=== PATIENT | female | born 1945 | race Caucasian/White ===

== ENCOUNTER 2022-06-23 14:36 | Outpatient (CLI) | payer OTHER, SELFPAY ==
[2022-06-23 19:40] LABS: Vitamin B12* 470 pg/mL (243-894)
== END 2022-06-23 14:37 | disposition home or self-care (01) ==
PROVIDERS: PCP Family Medicine; Visit Provider Family Medicine
DX: R06.09 Other forms of dyspnea (principal); R53.1 Weakness; I10 Essential (primary) hypertension; E78.5 Hyperlipidemia, unspecified; F41.9 Anxiety disorder, unspecified
CPT/HCPCS: 82607; 84443

== ENCOUNTER 2022-07-02 10:35 | Observation (INO) | payer OTHER, SELFPAY ==
[2022-07-02] VITALS (18 sets, daily range): BP systolic 119–171; BP diastolic 51–108; PULSE 68–87; RESP 16–26; TEMP 36.4–36.8; O2SAT 93–99; BMI 44.7; BMI 43.9
--- NOTE | 2022-07-02 12:26 | CRLHL7_ITS ---
For Patients: As a result of the Century Cures Act, medical imaging exams and procedure reports are released immediately into your electronic medical record. You may view this report before your referring provider. If you have questions, please contact your health care provider. INDICATION: Dyspnea COMPARISON: Portions of an examination from February 13, 2022 TECHNIQUE: : CT examination of the chest was performed with the uneventful intravenous administration of 95 cc of Isovue 370 while thin axial sections were obtained from above the apices of the lungs to the lung bases. Please note that all CT scans at this facility use dose modulation, iterative reconstruction, and/or weight-based dosing when appropriate to reduce radiation dose to as low as reasonably achievable. FINDINGS: : HEART and MEDIASTINUM: The heart size is normal. There is no mediastinal or hilar adenopathy or mass. There is no pericardial effusion.Atherosclerotic vascular calcifications. Valvular calcifications. A few scattered prominent mediastinal lymph nodes are probably reactive. PULMONARY ARTERIAL CIRCULATION: There is no visible intraluminal filling defect to suggest pulmonary embolus. LUNGS: Prominent septal lines and thickening the interlobular septa consistent with interstitial edema, mild. Basilar atelectasis. PLEURAL SPACES: Small effusions, right greater than VISUALIZED UPPER ABDOMEN: Hepatic steatosis. Granulomatous calcifications of the spleen. Otherwise, the limited visualized upper abdominal structures appear normal. OSSEOUS STRUCTURES: Age-appropriate appearance. No acute fracture or destructive process. TUBES and LINES: None. IMPRESSION: Mild interstitial edema pattern with bilateral effusions. This likely represents mild congestive heart failure. No finding of pulmonary embolus. Please note that all CT scans at this facility use dose modulation, iterative reconstruction, and/or weight-based dosing when appropriate to reduce radiation dose to as low as reasonably achievable. Dictated by Luis Armando Lehman MD @ 07/02/2022 2:43:14 PM (Electronically Signed)
--- NOTE | 2022-07-02 12:29 | ED.GENADULT ---
HPI - General Adult General Time Seen by Provider: 12:30 Date Seen: 07/02/22 Chief complaint: Shortness of Breath/Dyspnea Stated complaint: Struggling to breathe Time Seen by Provider: 07/02/22 12:14 Source: patient Mode of arrival: ambulatory Limitations: no limitations and physical limitation (Shortness of breath) History of Present Illness HPI narrative: Patient is 76 year white female with a history of diabetes on insulin history arteriosclerotic cardiovascular disease by her chart history presents with shortness of breath over the last few weeks started slowly but it has increased, definitely worse with physical exertion. Seems to get better with rest but she still has some shortness of breath at rest. She only gets occasional tightness in her chest with heavy exertion. She has had no fever chills COVID symptoms, no leg swelling or edema she reports her weight is been up a little bit over the last few weeks but not markedly. She has not had a history of heart failure by her history. She is on Lasix 40 mg daily by her chart. No COVID exposure as mention Related Data Home Medications Medication Instructions Recorded Confirmed atorvastatin 80 mg tablet 80 mg PO QPM 04/08/22 07/02/22 insulin glargine 100 unit/mL (3 14 unit subcut QPM 04/08/22 06/23/22 mL) subcutaneous pen (Lantus Solostar U-100 Insulin) metformin 1,000 mg tablet 1,000 mg PO BIDWMEAL 04/08/22 07/02/22 metoprolol tartrate 25 mg tablet 12.5 mg PO BID 04/08/22 07/02/22 pen needle, diabetic 31 gauge x 04/08/22 06/23/22 5/16 (Unifine Pentips) pioglitazone 15 mg tablet 15 mg PO QDAY 04/08/22 07/02/22 sertraline 100 mg tablet 100 mg PO QDAY 04/08/22 07/02/22 Previous Rx's Medication Instructions Recorded omeprazole 40 mg capsule,delayed 40 mg PO QDAY #90 caps 05/19/22 release furosemide 20 mg tablet 40 mg PO QDAY #180 tabs 06/23/22 hydrocodone 5 mg-acetaminophen 325 1 tab PO Q8H PRN pain #90 tabs 06/23/22 mg tablet glimepiride 4 mg tablet 8 mg PO QDAY #180 tabs 06/25/22 Allergies Allergy/AdvReac Type Severity Reaction Status Date / Time No Known Drug Allergies Allergy Verified 07/02/22 13:36 Review of Systems Status of ROS: Reports: 10 or more systems reviewed and unremarkable except as noted in History and below [facility] Medical History (Updated 07/02/22 @ 19:47 by Ahsan Huynh MD) Anxiety ASCVD (arteriosclerotic cardiovascular disease) CAD (coronary artery disease) Chronic back pain 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, managed as type 2 DM (diabetes mellitus), type 2 Dysthymia GERD (gastroesophageal reflux disease) Hyperlipidemia Hypertension Lumbar spinal stenosis Valvular cardiomyopathy Surgical History S/P coronary artery stent placement Status post hysterectomy with oophorectomy Status post lumbar spinal fusion Status post total replacement of right hip Social History Highest level of school completed/degree received: high school graduate Smoking Status: Never smoker Do you use any of these nicotine containing products: None Second hand tobacco smoke exposure: No How often do you have a drink containing alcohol: never AUDIT-C Alcohol total score: 0 Non-prescribed substance use: denies use Caffeine: Yes (coffee x2-3 daily) service: No Exam Narrative: Exam Narrative: Objective: Patient is a 76 year white female obese patient with was very pleasant, non hypoxic, vital signs show blood pressure 161/79 O2 sat is 90% on room air Neck is supple Chest is clear Heart rate and rhythm regular 2/6 systolic murmur Abdomen obese benign nontender Extremities show trace edema of the ankles and pretibial area, neurologic is nonfocal Skin periphery is warm and dry good peripheral perfusion Const: Vital Signs, click to edit/add: Vital Signs - 24 hr 07/02/22 12:00 07/02/22 12:38 07/02/22 13:30 Temperature 98.0 F Pulse Rate [Right Pulse Oximeter] 79 75 74 Respiratory Rate 26 H 24 24 Blood Pressure [Le ft Forearm] 161/79 H 155/65 H 119/108 H Pulse Oximetry 98 97 98 Oxygen Delivery Me thod Room Air Room Air Room Air 07/02/22 13:00 07/02/22 14:00 07/02/22 15:05 Temperature Pulse Rate [Right Pulse Oximeter] 68 80 87 Respiratory Rate 24 20 Blood Pressure [Le ft Forearm] 163/72 H 159/62 H 145/57 H Pulse Oximetry 96 95 96 Oxygen Delivery Me thod Room Air Room Air Room Air 07/02/22 15:30 07/02/22 16:00 07/02/22 16:30 Temperature Pulse Rate [Right Pulse Oximeter] 78 77 77 Respiratory Rate Blood Pressure [Le ft Forearm] 142/51 H 171/79 H Pulse Oximetry 96 97 98 Oxygen Delivery Me thod Room Air Room Air Room Air Course Vital Signs Vital signs: Initial Vital Signs Temperature 98.0 F 07/02/22 12:00 Temperature Source Temporal Artery Scan 07/02/22 12:00 Pulse Rate 79 07/02/22 12:00 Respiratory Rate 26 H 07/02/22 12:00 Blood Pressure 161/79 H 07/02/22 12:00 Blood Pressure Mean 106 07/02/22 12:00 Blood Pressure Position Sitting 07/02/22 12:00 Pulse Oximetry 98 07/02/22 12:00 Oxygen Delivery Method 07/02/22 12:00 Vital Signs Temperature 98.0 F 07/02/22 12:00 Pulse Rate 79 07/02/22 12:00 Respiratory Rate 26 H 07/02/22 12:00 Blood Pressure 161/79 H 07/02/22 12:00 Pulse Oximetry 98 07/02/22 12:00 Oxygen Delivery Method 07/02/22 12:00 Temperature 97.9 F 07/02/22 18:00 Pulse Rate 77 07/02/22 16:30 Respiratory Rate 22 07/02/22 18:47 Blood Pressure 171/79 H 07/02/22 16:30 Pulse Oximetry 99 07/02/22 18:47 Oxygen Delivery Method 07/02/22 18:47 Medical Decision Making MDM Narrative Medical decision making narrative: Patient is a 76 year white female with arteriosclerotic cardiovascular disease, elevated BMI with shortness of breath over a few weeks duration. She also describes occasional chest tightness with heavy exertion but not at rest. At this point I think we do will do a troponin, cardiac monitoring to rule out acute coronary syndrome, chest CT to rule out PE, check electrolytes CBC to make sure she did have anemia. Will check a COVID test. Will give the patient IV Lasix., will check a proBNP. We will give aspirin as well. Addendum: Patient's 2nd troponin is just about what it was just a little bit over abnormal level at 0.12, certainly this could be from cardiac strain as well from her foot heart failure. She also of certainly has some ischemic disease, her hemoglobins been 7.78 recently. No source of bleeding she has not noticed any GI bleeding. Will transfuse here unit. I have discussed with Dr. Delgadillo who kindly will follow in hospital for the hospitalist service. Optimally 0 transfer this patient for cardiac assessment and care, but there is no available beds in the state area, therefore we will admit the patient to the hospital here and make due as above. Addendum: Patient got a little sweaty, nurses checked her blood sugar and it was in the 50 range she will be getting a half amp of D50 and then will run a TKO D5 court half-normal Lab Data Labs: Lab Results 07/02/22 07/02/22 07/02/22 Range/Units 12:27 12:30 12:30 WBC 10.89 (4.50-11.00) K/uL RBC 2.88 L (4.00-5.20) m/uL Hgb 8.0 L (12.0-16.0) gm/dL Hct 26.3 L (33.0-51.0) % MCV 91 (80-100) fL MCH 28 (26-34) pg MCHC 30 L (32-36) gm/dL RDW Coeff of Clarita 16.5 H (11.5-15.5) % Plt Count 194 (140-440) K/uL Neut % (Auto) 64.8 (42.0-72.0) % Lymph % (Auto) 17.8 L (20-44) % [place] % (Auto) 15.2 H (0.0-11.0) % Eos % (Auto) 0.2 (0.0-7.0) % Baso % (Auto) 0.3 (0.0-3.0) % Neut # (Auto) 7.07 H (1.7-7.0) K/uL Lymph # (Auto) 1.90 (0.90-2.90) K/uL [place] # (Auto) 1.70 H (0.00-0.90) K/UL Eos # (Auto) 0.02 (0.00-0.50) K/uL Baso # (Auto) 0.03 (0.00-0.30) K/uL Abs Immat Gran (auto) 0.18 (0.00-0.30) K/uL Absolute Retic (0.03-0.08) # Percent Retic (0.5-2.0) % Immature Retic Fraction (3.0-15.9) % Retic Hgb Equivalent (29.0-35.0) pg INR (0.91-1.10) Sodium 140 (135-149) mmol/L Potassium 4.2 (3.6-5.1) mmol/L Chloride 106 (96-114) mmol/L Carbon Dioxide 25 (20-32) mmol/L BUN 28 (7-30) mg/dL Creatinine 1.2 (0.5-1.5) mg/dL Estimated Creat Clear 28.20 Estimated GFR 47 ml/min Glucose 188 H (60-115) mg/dL Calcium 9.9 (8.4-10.6) mg/dL Iron (37-170) ug/dL TIBC (265-497) ug/dL % Saturation (20-50) % Ferritin (11.1-264.0) ng/mL Total Bilirubin (0.1-1.5) mg/dL Direct Bilirubin (0.0-0.5) mg/dL AST (12-35) U/L ALT (4-35) U/L Alkaline Phosphatase (40-150) U/L Troponin I (0.01-0.04) ng/mL C-Reactive Protein < 0.5 L (0.5-1.0) mg/dL NT-Pro-B Natriuret Pep (0-450) PG/mL Total Protein (6.0-8.3) g/dL Albumin (3.3-5.0) g/dL SARS-CoV-2 (PCR) Negative SARS-CoV-2 (Negative) Blood Type Antibody Screen Crossmatch (AHG) 07/02/22 07/02/22 07/02/22 Range/Units 12:30 12:30 12:30 WBC (4.50-11.00) K/uL RBC (4.00-5.20) m/uL Hgb (12.0-16.0) gm/dL Hct (33.0-51.0) % MCV (80-100) fL MCH (26-34) pg MCHC (32-36) gm/dL RDW Coeff of Clarita (11.5-15.5) % Plt Count (140-440) K/uL Neut % (Auto) (42.0-72.0) % Lymph % (Auto) (20-44) % [place] % (Auto) (0.0-11.0) % Eos % (Auto) (0.0-7.0) % Baso % (Auto) (0.0-3.0) % Neut # (Auto) (1.7-7.0) K/uL Lymph # (Auto) (0.90-2.90) K/uL [place] # (Auto) (0.00-0.90) K/UL Eos # (Auto) (0.00-0.50) K/uL Baso # (Auto) (0.00-0.30) K/uL Abs Immat Gran (auto) (0.00-0.30) K/uL Absolute Retic (0.03-0.08) # Percent Retic (0.5-2.0) % Immature Retic Fraction (3.0-15.9) % Retic Hgb Equivalent (29.0-35.0) pg INR 0.97 (0.91-1.10) Sodium (135-149) mmol/L Potassium (3.6-5.1) mmol/L Chloride (96-114) mmol/L Carbon Dioxide (20-32) mmol/L BUN (7-30) mg/dL Creatinine (0.5-1.5) mg/dL Estimated Creat Clear Estimated GFR ml/min Glucose (60-115) mg/dL Calcium (8.4-10.6) mg/dL Iron (37-170) ug/dL TIBC (265-497) ug/dL % Saturation (20-50) % Ferritin 95.5 (11.1-264.0) ng/mL Total Bilirubin 0.7 (0.1-1.5) mg/dL Direct Bilirubin 0.1 (0.0-0.5) mg/dL AST 30 (12-35) U/L ALT 22 (4-35) U/L Alkaline Phosphatase 74 (40-150) U/L Troponin I 0.09 H* (0.01-0.04) ng/mL C-Reactive Protein (0.5-1.0) mg/dL NT-Pro-B Natriuret Pep 1700 H (0-450) PG/mL Total Protein 7.4 (6.0-8.3) g/dL Albumin 4.7 (3.3-5.0) g/dL SARS-CoV-2 (PCR) (Negative) Blood Type Antibody Screen Crossmatch (AHG) 07/02/22 07/02/22 07/02/22 Range/Units 12:30 12:30 14:06 WBC (4.50-11.00) K/uL RBC (4.00-5.20) m/uL Hgb (12.0-16.0) gm/dL Hct (33.0-51.0) % MCV (80-100) fL MCH (26-34) pg MCHC (32-36) gm/dL RDW Coeff of Clarita (11.5-15.5) % Plt Count (140-440) K/uL Neut % (Auto) (42.0-72.0) % Lymph % (Auto) (20-44) % [place] % (Auto) (0.0-11.0) % Eos % (Auto) (0.0-7.0) % Baso % (Auto) (0.0-3.0) % Neut # (Auto) (1.7-7.0) K/uL Lymph # (Auto) (0.90-2.90) K/uL [place] # (Auto) (0.00-0.90) K/UL Eos # (Auto) (0.00-0.50) K/uL Baso # (Auto) (0.00-0.30) K/uL Abs Immat Gran (auto) (0.00-0.30) K/uL Absolute Retic 0.15 H (0.03-0.08) # Percent Retic 5.0 H (0.5-2.0) % Immature Retic Fraction 26.6 H (3.0-15.9) % Retic Hgb Equivalent 23.7 L (29.0-35.0) pg INR (0.91-1.10) Sodium (135-149) mmol/L Potassium (3.6-5.1) mmol/L Chloride (96-114) mmol/L Carbon Dioxide (20-32) mmol/L BUN (7-30) mg/dL Creatinine (0.5-1.5) mg/dL Estimated Creat Clear Estimated GFR ml/min Glucose (60-115) mg/dL Calcium (8.4-10.6) mg/dL Iron 54 (37-170) ug/dL TIBC 339 (265-497) ug/dL % Saturation 16 L (20-50) % Ferritin (11.1-264.0) ng/mL Total Bilirubin (0.1-1.5) mg/dL Direct Bilirubin (0.0-0.5) mg/dL AST (12-35) U/L ALT (4-35) U/L Alkaline Phosphatase (40-150) U/L Troponin I 0.12 H* (0.01-0.04) ng/mL C-Reactive Protein (0.5-1.0) mg/dL NT-Pro-B Natriuret Pep (0-450) PG/mL Total Protein (6.0-8.3) g/dL Albumin (3.3-5.0) g/dL SARS-CoV-2 (PCR) (Negative) Blood Type Antibody Screen Crossmatch (AHG) 07/02/22 Range/Units 15:37 WBC (4.50-11.00) K/uL RBC (4.00-5.20) m/uL Hgb (12.0-16.0) gm/dL Hct (33.0-51.0) % MCV (80-100) fL MCH (26-34) pg MCHC (32-36) gm/dL RDW Coeff of Clarita (11.5-15.5) % Plt Count (140-440) K/uL Neut % (Auto) (42.0-72.0) % Lymph % (Auto) (20-44) % [place] % (Auto) (0.0-11.0) % Eos % (Auto) (0.0-7.0) % Baso % (Auto) (0.0-3.0) % Neut # (Auto) (1.7-7.0) K/uL Lymph # (Auto) (0.90-2.90) K/uL [place] # (Auto) (0.00-0.90) K/UL Eos # (Auto) (0.00-0.50) K/uL Baso # (Auto) (0.00-0.30) K/uL Abs Immat Gran (auto) (0.00-0.30) K/uL Absolute Retic (0.03-0.08) # Percent Retic (0.5-2.0) % Immature Retic Fraction (3.0-15.9) % Retic Hgb Equivalent (29.0-35.0) pg INR (0.91-1.10) Sodium (135-149) mmol/L Potassium (3.6-5.1) mmol/L Chloride (96-114) mmol/L Carbon Dioxide (20-32) mmol/L BUN (7-30) mg/dL Creatinine (0.5-1.5) mg/dL Estimated Creat Clear Estimated GFR ml/min Glucose (60-115) mg/dL Calcium (8.4-10.6) mg/dL Iron (37-170) ug/dL TIBC (265-497) ug/dL % Saturation (20-50) % Ferritin (11.1-264.0) ng/mL Total Bilirubin (0.1-1.5) mg/dL Direct Bilirubin (0.0-0.5) mg/dL AST (12-35) U/L ALT (4-35) U/L Alkaline Phosphatase (40-150) U/L Troponin I (0.01-0.04) ng/mL C-Reactive Protein (0.5-1.0) mg/dL NT-Pro-B Natriuret Pep (0-450) PG/mL Total Protein (6.0-8.3) g/dL Albumin (3.3-5.0) g/dL SARS-CoV-2 (PCR) (Negative) Blood Type O Positive Antibody Screen NEGATIVE Crossmatch (AHG) See Detail Discharge Plan Discharge Clinical Impression: Shortness of breath Discharge Location: [facility] Prescriptions: No Action furosemide 20 mg tablet 40 mg PO QDAY Qty: 180 3RF hydrocodone-acetaminophen 5-325 mg tablet 1 tab PO Q8H PRN (Reason: pain) Qty: 90 0RF atorvastatin 80 mg tablet 80 mg PO QPM (DME) pen needle, diabetic [Unifine Pentips] 31 gauge x 5/16 needle See Rx Instructions .Route Rx Instructions: TID insulin glargine [Lantus Solostar U-100 Insulin] 100 unit/mL (3 mL) insulin pen 14 unit subcut QPM metformin 1,000 mg tablet 1,000 mg PO BIDWMEAL metoprolol tartrate 25 mg tablet 12.5 mg PO BID pioglitazone 15 mg tablet 15 mg PO QDAY sertraline 100 mg tablet 100 mg PO QDAY omeprazole 40 mg capsule,delayed release(DR/EC) 40 mg PO QDAY Qty: 90 3RF glimepiride 4 mg tablet 8 mg PO QDAY Qty: 180 3RF Follow Up/Referrals: Smith Marie MD [Primary Care Provider] -
[2022-07-02 12:39] LABS: Basophils Absolute Auto 0.03 K/uL (0.00-0.30); Basophils Percent Auto 0.3 % (0.0-3.0); Eosinophils Absolute Auto 0.02 K/uL (0.00-0.50); Eosinophils Percent Auto 0.2 % (0.0-7.0); Hematocrit 26.3 % (33.0-51.0); Immature Granulocytes Abs Auto 0.18 K/uL (0.00-0.30); Lymphocytes Percent Auto 17.8 % (20-44); Mean Corpuscular HGB Conc 30 gm/dL (32-36); Mean Corpuscular Hemoglobin 28 pg (26-34); Mean Corpuscular Volume 91 fL (80-100); Monocytes Percent Auto 15.2 % (0.0-11.0); Neutrophils Absolute Auto 7.07 K/uL (1.7-7.0); Neutrophils Percent Auto 64.8 % (42.0-72.0); Platelet Count* 194 K/uL (140-440); RDW Coefficient of Variation % 16.5 % (11.5-15.5); Red Blood Count 2.88 m/uL (4.00-5.20); White Blood Count* 10.89 K/uL (4.50-11.00)
[2022-07-02] MEDS: ASPIRIN 81 MG TAB.CHEW 324 MG PO (12:44)
[2022-07-02] MEDS: FUROSEMIDE 10 MG/ML inj 40 MG IV (12:44)
[2022-07-02 12:57] LABS: Slide Review Reflex No
[2022-07-02 13:03] LABS: Chloride* 106 mmol/L (96-114); Potassium* 4.2 mmol/L (3.6-5.1); Sodium* 140 mmol/L (135-149)
[2022-07-02 13:04] LABS: Albumin* 4.7 g/dL (3.3-5.0)
[2022-07-02 13:05] LABS: INR 0.97 (0.91-1.10); Prothrombin Time 13.3 Seconds
[2022-07-02 13:06] LABS: Creatinine* 1.2 mg/dL (0.5-1.5); Estimated Glomerular Filt Rate 47 ml/min
[2022-07-02 13:07] LABS: Bilirubin Direct* 0.1 mg/dL (0.0-0.5); Bilirubin Total* 0.7 mg/dL (0.1-1.5); Blood Urea Nitrogen* 28 mg/dL (7-30); Calcium* 9.9 mg/dL (8.4-10.6); Carbon Dioxide* 25 mmol/L (20-32); Glucose* 188 mg/dL (60-115); Total Protein* 7.4 g/dL (6.0-8.3)
[2022-07-02 13:08] LABS: Alanine Aminotransferase* 22 U/L (4-35); Alkaline Phosphatase* 74 U/L (40-150); Aspartate Amino Transferase* 30 U/L (12-35)
[2022-07-02 13:11] LABS: C Reactive Protein* < 0.5 mg/dL (0.5-1.0)
[2022-07-02 13:16] LABS: NT Pro B Type NatriureticPept* 1700 PG/mL (0-450)
[2022-07-02 13:17] LABS: SARS PCR* Negative SARS-CoV-2 (Negative)
[2022-07-02 13:20] LABS: Troponin I* 0.09 ng/mL (0.01-0.04)
[2022-07-02 15:08] LABS: Troponin I* 0.12 ng/mL (0.01-0.04)
--- NOTE | 2022-07-02 15:11 | ED.NURSE ---
Dr Cabrera updated on elevated trop level
[2022-07-02 15:56] LABS: Immature Reticulocyte Fraction 26.6 % (3.0-15.9); Reticulocyte Hemoglobin Equivi 23.7 pg (29.0-35.0); Reticulocytes Absolute 0.15 # (0.03-0.08)
[2022-07-02] MEDS: DEXTROSE 50 % SYRINGE IVP (16:04)
--- NOTE | 2022-07-02 16:06 | ED.NURSE ---
pt became diaphoretic, states that happens when blood sugar drops. pt given juice and blood sugar checked, blood sugar 54. pt given another juice and 1/2 amp D50.
--- NOTE | 2022-07-02 16:08 | ED.NURSE ---
dr. nguyen in seeing pt
[2022-07-02 16:14] LABS: Iron* 54 ug/dL (37-170)
[2022-07-02 16:23] LABS: Percent Iron Saturation 16 % (20-50); Total Iron Binding Capacity 339 ug/dL (265-497)
--- NOTE | 2022-07-02 16:37 | ED.NURSE ---
report given to Radha. pt will transfer to room 241 via cart on heart monitor.
[2022-07-02 16:51] LABS: Ferritin* 95.5 ng/mL (11.1-264.0)
--- NOTE | 2022-07-02 19:33 | PM.IMHP1 ---
Hospitalist- H&P: HPI History of Present Illness Time Seen by Provider: 16:30 Date Seen: 07/02/22 Chief complaint: Struggling to breathe Narrative: Amberly Norman is a 76 year old woman has had progressively increased dyspnea over the last several weeks, worse over the past few days. Dyspnea is worse with any exertion. Unable to lay flat when she sleeps. Sleeps semi upright in her recliner because of her orthopnea. Has increasing discomfort with exertion as well. Denies any chest heaviness, pressure, tightness, or pain though. Denies syncope or near-syncope. Denies nausea or vomiting. Denies palpitations or fluttering. Denies cough. Denies fevers, rigors, diaphoresis. Intermittent bilateral lower extremity edema. Intermittent left lower extremity erythema with increasing edema. Denies blood loss of any sort. Has been told she has anemia for number of years. Few days ago was started on iron supplementation by her primary care physician. Denies having previously had any studies to discern the cause of her anemia aside from blood test. Denies any blood loss of any sort. Review of Systems Status of ROS: Reports: 10 or more systems reviewed and unremarkable except as noted in History and below Narrative: No recent travel, trauma, injury, or infection. No concerns with bowel or bladder function or elimination. Denies dysuria, urgency, frequency, hematuria. Denies diarrhea or constipation. Denies hematochezia or hematemesis. Denies any melena. Denies epistaxis, vaginal bleeding, or hemoptysis. No focal motor neurologic deficits. Denies cold or heat intolerance. 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, managed as type 2 DM (diabetes mellitus), type 2 Dysthymia GERD (gastroesophageal reflux disease) Hyperlipidemia Hypertension Lumbar spinal stenosis Valvular cardiomyopathy Surgical History S/P coronary artery stent placement Status post hysterectomy with oophorectomy Status post lumbar spinal fusion Status post total replacement of right hip Social History Highest level of school completed/degree received: high school graduate Smoking Status: Never smoker Do you use any of these nicotine containing products: None Second hand tobacco smoke exposure: No How often do you have a drink containing alcohol: never AUDIT-C Alcohol total score: 0 Non-prescribed substance use: denies use Caffeine: Yes (coffee x2-3 daily) service: No Meds Home Medications and Allergies Home Medications Medication Instructions Recorded Confirmed Type atorvastatin 80 mg tablet 80 mg PO QPM 04/08/22 07/02/22 History insulin glargine 100 unit/mL (3 14 unit subcut QPM 04/08/22 06/23/22 History mL) subcutaneous pen (Lantus Solostar U-100 Insulin) metformin 1,000 mg tablet 1,000 mg PO BIDWMEAL 04/08/22 07/02/22 History metoprolol tartrate 25 mg tablet 12.5 mg PO BID 04/08/22 07/02/22 History pen needle, diabetic 31 gauge x 04/08/22 06/23/22 History 5/16 (Unifine Pentips) pioglitazone 15 mg tablet 15 mg PO QDAY 04/08/22 07/02/22 History sertraline 100 mg tablet 100 mg PO QDAY 04/08/22 07/02/22 History Allergies Allergy/AdvReac Type Severity Reaction Status Date / Time No Known Drug Allergies Allergy Verified 07/02/22 13:36 Exam Narrative: Exam Narrative: No acute distress, appears comfortable. Sitting semi recumbent in exam table in the emergency department. Alert, oriented to self, place, time, situation. Articulate, cooperative, friendly. Mood and affect are congruent. Pale in complexion. No jaundice or icterus. No contusions or ecchymosis. Hearing and vision are grossly normal. Midline nasal septum. Dentition in fair repair. Oropharynx benign although she does have a tight oral aperture. Neck is supple. Midline trachea, normal thyroid. No jugular venous distention but does have hepatojugular reflux. No carotid bruits. No lymphadenopathy. Lungs are clear to auscultation without wheezing, rhonchi, or rales. Chest wall excursions are full. Heart tones with regular rhythm, normal S1-S2. Harsh murmur across the entire precordium grade 3-4/6. No gallops or rubs. PMI not laterally displaced. Abdomen is obese with active bowel sounds, soft, nontender. Does have trace edema pretibially bilaterally. Independent transfer, station, and gait. No focal motor neurologic deficit. No tremor, asterixis, or ataxia. Const: Vital Signs, click to edit/add: Vital Signs - 24 hr 07/02/22 12:00 07/02/22 12:38 07/02/22 13:30 Temperature 98.0 F Pulse Rate [Right Pulse Oximeter] 79 75 74 Respiratory Rate 26 H 24 24 Blood Pressure [Le ft Forearm] 161/79 H 155/65 H 119/108 H Pulse Oximetry 98 97 98 Oxygen Delivery Me thod Room Air Room Air Room Air 07/02/22 13:00 07/02/22 14:00 07/02/22 15:05 Temperature Pulse Rate [Right Pulse Oximeter] 68 80 87 Respiratory Rate 24 20 Blood Pressure [Le ft Forearm] 163/72 H 159/62 H 145/57 H Pulse Oximetry 96 95 96 Oxygen Delivery Me thod Room Air Room Air Room Air 07/02/22 15:30 07/02/22 16:00 07/02/22 16:30 Temperature Pulse Rate [Right Pulse Oximeter] 78 77 77 Respiratory Rate Blood Pressure [Le ft Forearm] 142/51 H 171/79 H Pulse Oximetry 96 97 98 Oxygen Delivery Me thod Room Air Room Air Room Air 07/02/22 18:00 07/02/22 18:47 Temperature 97.9 F Pulse Rate [Right Pulse Oximeter] Respiratory Rate 22 22 Blood Pressure [Le ft Forearm] Pulse Oximetry 99 99 Oxygen Delivery Me thod Room Air Room Air Documenting provider has reviewed patient's vital signs: yes Hospitalist - H&P: Result Labs Labs: Short CBC 07/02/22 Range/Units 12:30 WBC 10.89 (4.50-11.00) K/uL Hgb 8.0 L (12.0-16.0) gm/dL Hct 26.3 L (33.0-51.0) % Plt Count 194 (140-440) K/uL BMP 07/02/22 12:30 Sodium 140 Potassium 4.2 Chloride 106 Carbon Dioxide 25 BUN 28 Creatinine 1.2 Glucose 188 H Calcium 9.9 Cardiac Enzymes 07/02/22 07/02/22 Range/Units 12:30 14:06 Troponin I 0.09 H* 0.12 H* (0.01-0.04) ng/mL Liver Function 07/02/22 Range/Units 12:30 Total Bilirubin 0.7 (0.1-1.5) mg/dL Direct Bilirubin 0.1 (0.0-0.5) mg/dL AST 30 (12-35) U/L ALT 22 (4-35) U/L Alkaline Phosphatase 74 (40-150) U/L Albumin 4.7 (3.3-5.0) g/dL ECG Attestation: I personally reviewed and interpreted this ECG as follows: ECG interpretation date: 07/02/22 ECG interpretation time: 16:30 Prior ECG tracings: not available for review Interpretation: A normal sinus rhythm. Imaging CT scan - chest: Attestation: I have reviewed the pertinent imaging results. Radiologist's impression: Mild interstitial edema pattern with bilateral effusions. This likely represents mild congestive heart failure. No finding of pulmonary embolus. Assessment and Plan Assessment and plan (1) Acute on chronic diastolic CHF (congestive heart failure), NYHA class 3: Status: Acute (2) Valvular cardiomyopathy: Problem comment: Aortic stenosis Status: Acute (3) Aortic stenosis: Problem comment: Coronary angiogram/hemodynamic study 07/26/2021: LMCA, mild luminal irregularities; LAD, mild luminal irregularities; circumflex, patent stent free of significant disease; RCA is dominant, patent stent, mild luminal irregularities. Moderate aortic stenosis, mean gradient 26 mmHg, SHE 1.08 cm2. Status: Acute (4) CAD (coronary artery disease): Problem comment: 02/22/2019 NM stress test: small area of mild to moderate ischemia in the mid and apical anterior wall. Coronary angiogram 07/26/2021: LMCA, mild luminal irregularities; LAD, mild luminal irregularities; circumflex, patent stent free of significant disease; RCA is dominant, patent stent, mild luminal irregularities. Moderate aortic stenosis, mean gradient 26 mmHg, SHE 1.08 cm2. Status: Acute (5) Interstitial edema: Problem comment: Mild, with small bilat pleural effusions consistent with heart failure. Status: Acute (6) Elevated troponin level: Problem comment: Consistent with myocardial strain pattern associated with heart failure. Status: Acute (7) Sleeps in sitting position due to orthopnea: Status: Acute (8) Dyspnea on exertion: Status: Acute (9) DM (diabetes mellitus), type 2: Problem comment: Insulin requiring, plus glipizide, metformin, and pioglitazone Status: Acute (10) Hypoglycemia associated with type 2 diabetes mellitus: Status: Acute (11) Chronic anemia: Problem comment: Iron studies suggest iron deficiency. No additional studies performed as of 07/02/2022. Status: Acute Plan 1. Reviewed impression with patient and her . 2. Recommended admission to the hospital, which they are agreeable to. 3. Increase diuresis efforts with IV furosemide. Monitor her response with physiologic parameters as well as biochemical parameters. 4. Telemetry. 5. Repeat echocardiogram. I am concerned that her cardiomyopathy may be worsening as well as her aortic stenosis. 6. Monitor troponin I levels. 7. Daily weights, I&Os. 8. Stop the pioglitazone which can exacerbate heart failure. Continue with long-acting insulin. And aspart sliding scale insulin. Hold glipizide and metformin for now. 9. Would certainly benefit from repeat myocardial stress test in the outpatient setting. 10. Dietitian to review diet with her given her multiple comorbidities. 11. Transfuse with 1 unit of packed red blood cells for now. 12. Would certainly benefit from a more comprehensive assessment about why she has this anemia. If after doing the workup the conclusion is still that she has iron deficiency anemia alone without any other primary disease process, then to consideration will need to be given to the possibility of IV iron transfusion. 13. Will certainly benefit from follow-up in the outpatient setting with her primary care physician and possibly Cardiology and Hematology.
[2022-07-02] MEDS: FUROSEMIDE 10 MG/ML inj 40 MG IVP (20:29)
[2022-07-02 20:33] LABS: Troponin I* 0.08 ng/mL (0.01-0.04)
--- NOTE | 2022-07-02 20:36 | PC.NURSE ---
2034 Critical lab received, Troponin 0.08, charge and MD updated
[2022-07-02] MEDS: SENNOSIDES/DOCUSATE TABLET 1 TAB PO (21:43)
[2022-07-02] MEDS: HYDROCODONE-ACETAMIN 5-325 MG 1 TAB PO (21:44)
[2022-07-02] MEDS: METOPROLOL TARTRATE 25 MG TABLET 12.5 MG PO (21:44)
[2022-07-03] VITALS (8 sets, daily range): BP systolic 125–181; BP diastolic 55–90; PULSE 65–85; RESP 18–20; TEMP 36.5–36.8; O2SAT 94–97
[2022-07-03] MEDS: HYDROCODONE-ACETAMIN 5-325 MG 1 TAB PO (05:29)
--- NOTE | 2022-07-03 06:00 | PC.NURSE ---
Shift Note: Pt pleasant and cooperative, BP has been elevated this shift, evening dose of metoprolol given @ HS with minimal effect. 1 unit of PRBC transfused without incident for low Hb, awaiting AM recheck results, no adverse reaction noted. Tele shows NSR, no ectopy. PIV in LAC is SL and asymptomatic. LS have fine crackles in RLL, clear in all other lobes. Pt takes Lasix at baseline, one IV dose administered prior to transfusion with Pt noted improved breathing. Pt is up with minimal SBA with her own cane in room to BR. Pt does get winded with activity. See eMAR for medication administration.
[2022-07-03] MEDS: OMEPRAZOLE 20 MG CAPSULE DR 40 MG PO (06:44)
[2022-07-03] MEDS: SERTRALINE 100 MG TABLET PO (06:44)
[2022-07-03 06:52] LABS: HCO3 VBG 27 mmol/L (21-28); Lactate* 0.8 mmol/L (0.5-1.9); PCO2 VBG 39 mmHG (40-50); PO2 VBG 71.7 mmHG (25-47); pH VBG 7.446 (7.32-7.43)
[2022-07-03 07:08] LABS: Hematocrit 29.1 % (33.0-51.0); Hemoglobin* 9.1 gm/dL (12.0-16.0); Mean Corpuscular HGB Conc 31 gm/dL (32-36); Mean Corpuscular Hemoglobin 28 pg (26-34); Mean Corpuscular Volume 89 fL (80-100); Platelet Count* 176 K/uL (140-440); Red Blood Count 3.28 m/uL (4.00-5.20); White Blood Count* 8.84 K/uL (4.50-11.00)
[2022-07-03 07:13] LABS: Slide Review Reflex No
[2022-07-03 07:23] LABS: Chloride* 102 mmol/L (96-114); Sodium* 140 mmol/L (135-149)
[2022-07-03 07:24] LABS: Potassium* 3.9 mmol/L (3.6-5.1)
[2022-07-03 07:26] LABS: Creatinine* 1.3 mg/dL (0.5-1.5); Est. Creatinine Clearance* 26.03; Estimated Glomerular Filt Rate 42 ml/min
[2022-07-03 07:27] LABS: Blood Urea Nitrogen* 31 mg/dL (7-30); Carbon Dioxide* 25 mmol/L (20-32); Glucose* 165 mg/dL (60-115); Phosphorus* 5.2 mg/dL (2.5-4.5)
[2022-07-03 07:28] LABS: Calcium* 9.8 mg/dL (8.4-10.6); Magnesium* 1.7 mg/dL (1.5-2.6)
[2022-07-03 07:30] LABS: C Reactive Protein* 0.6 mg/dL (0.5-1.0)
[2022-07-03 07:39] LABS: Troponin I* 0.04 ng/mL (0.01-0.04)
[2022-07-03] MEDS: FUROSEMIDE 10 MG/ML inj 40 MG IVP (08:06)
[2022-07-03] MEDS: AMLODIPINE 5 MG TABLET PO (08:06)
[2022-07-03] MEDS: METOPROLOL TARTRATE 25 MG TABLET 12.5 MG PO ×2 (08:07→20:56)
[2022-07-03 08:17] LABS: Vitamin B12* 494 pg/mL (243-894)
--- NOTE | 2022-07-03 10:36 | NUTR.NU ---
JORGITO with MD consult related to CHF and DMT2. JULIO CESARN visited with patient whom agreed to diet education without designated caregiver present - she reports he is unable to be at the hospital and she will provide him this information when she is home. Nutrition education provided on a low sodium diet related to congestive heart failure. Verbal and written information provided. Recommend limiting sodium to 2,000 mg per day. Discussed foods recommended and to avoid. Handouts provided from [facility] on heart failure nutrition therapy, sodium content of foods, heart healthy label reading tips, sodium-free flavoring tips and heart healthy cooking and shopping tips. Patient verbalized understanding. JULIO CESARN also discussed with patient diet education related to DMT2. She reported she has received some diet education in the past, however she did not get full education. JULIO CESARN discussed with patient carbohydrate counting, portion sizes, balancing meals/snacks and label reading.?Provided my plate handout. JULIO CESARN encouraged patient to visit a Dietitian as an outpatient when she is ready. RDN's contact information was provided and patient was encouraged to call with questions.
--- NOTE | 2022-07-03 13:42 | PM.IMPN1 ---
Progress Note: A&P Assessment and plan (1) Acute on chronic diastolic CHF (congestive heart failure), NYHA class 3: Problem details: Awaiting echo. Will likely transition her to true 0 semi from her Lasix. Transfused. Unclear the source of her anemia. Status: Acute (2) Valvular cardiomyopathy: Problem details: Aortic stenosis - awaiting echo Status: Acute (3) Aortic stenosis: Problem details: Coronary angiogram/hemodynamic study 07/26/2021: LMCA, mild luminal irregularities; LAD, mild luminal irregularities; circumflex, patent stent free of significant disease; RCA is dominant, patent stent, mild luminal irregularities. Moderate aortic stenosis, mean gradient 26 mmHg, SHE 1.08 cm2. Status: Acute (4) CAD (coronary artery disease): Problem details: 02/22/2019 NM stress test: small area of mild to moderate ischemia in the mid and apical anterior wall. Coronary angiogram 07/26/2021: LMCA, mild luminal irregularities; LAD, mild luminal irregularities; circumflex, patent stent free of significant disease; RCA is dominant, patent stent, mild luminal irregularities. Moderate aortic stenosis, mean gradient 26 mmHg, SHE 1.08 cm2. Status: Acute (5) Interstitial edema: Problem details: Mild, with small bilat pleural effusions consistent with heart failure. - improved clinically Status: Acute (6) Elevated troponin level: Problem details: Consistent with myocardial strain pattern associated with heart failure. - troponin downtrending Status: Acute (7) DM (diabetes mellitus), type 2: Problem details: Insulin requiring, plus glipizide, metformin, and pioglitazone Will hold pioglitazone from here forward Status: Acute (8) Chronic anemia: Problem details: Iron studies suggest iron deficiency. No additional studies performed as of 07/02/2022. Status: Acute Subjective Date Seen: 07/03/22 Interval history: Daily Progress Note - Hospital Medicine Day #: 2 CC: dyspnea; acute heart failure OVERNIGHT UPDATES FROM STAFF & MED, LAB, IMAGING UPDATES Patient has felt a lot better since her IV dosed diuretics. She rested well overnight. She received her blood and this may also have helped her feel better. Notes that the swelling in her bilateral ankles, left has been more problematic, is mildly improved. She does note getting up to the restroom after getting another dose of IV Lasix this morning does not wear her out as it would have done if she was at home. Hemoglobin is 9.1 up from a low of 7.7 Iron level seem to be appropriate. Reticulocyte counts are elevated. INR normal VBG is normal BUN is a little elevated at 31 and creatinine is 1.3. Troponin is down trending 0.04 this morning from 0.08. TSH is normal. Vitamin B12 normal. Folate level pending. CT of chest last night reviewed. Mild interstitial edema pattern with bilateral effusions. This likely represents mild congestive heart failure. No finding of pulmonary embolus. Review of Systems: See subjective Cardiac: No new chest pain/pressure/palpitations. Respiratory: no new dyspnea. GI: No abdominal bloating Objective: Comfortable appearing. Vitals: see above Lungs: Scattered rhonchi Cardiac: Holosystolic ejection murmur. 3/6. Peripheral edema 1+. Disposition/Potential discharge - Likely to return to previous living situation. Total time is 35 minutes with greater than 50% spent in counseling and coordination of care. Exam Const: Vital Signs, click to edit/add: Vital Signs - 24 hr 07/02/22 14:00 07/02/22 15:05 07/02/22 15:30 Temperature Pulse Rate Pulse Rate [Right Pulse Oximeter] 80 87 78 Pulse Rate [Right Radial] Pulse Rate [orthos tatic lying Right Pulse Oximeter] Pulse Rate [orthos tatic sitting Righ t Pulse Oximeter] Pulse Rate [orthos tatic standing Rig ht Pulse Oximeter] Respiratory Rate 20 Blood Pressure Blood Pressure [Le ft Forearm] 159/62 H 145/57 H 142/51 H Blood Pressure [Ri ght Radial Artery] Blood Pressure [or thostatic lying Le ft Radial Artery] Blood Pressure [or thostatic sitting Left Radial Artery ] Blood Pressure [or thostatic standing Left Radial Arter y] Pulse Oximetry 95 96 96 Oxygen Delivery Me thod Room Air Room Air Room Air 07/02/22 16:00 07/02/22 16:30 07/02/22 18:00 Temperature 97.9 F Pulse Rate Pulse Rate [Right Pulse Oximeter] 77 77 Pulse Rate [Right Radial] Pulse Rate [orthos tatic lying Right Pulse Oximeter] Pulse Rate [orthos tatic sitting Righ t Pulse Oximeter] Pulse Rate [orthos tatic standing Rig ht Pulse Oximeter] Respiratory Rate 22 Blood Pressure Blood Pressure [Le ft Forearm] 171/79 H Blood Pressure [Ri ght Radial Artery] Blood Pressure [or thostatic lying Le ft Radial Artery] Blood Pressure [or thostatic sitting Left Radial Artery ] Blood Pressure [or thostatic standing Left Radial Arter y] Pulse Oximetry 97 98 99 Oxygen Delivery Me thod Room Air Room Air Room Air 07/02/22 18:47 07/02/22 20:04 07/02/22 20:19 Temperature 97.9 F 97.9 F Pulse Rate 82 82 Pulse Rate [Right Pulse Oximeter] Pulse Rate [Right Radial] Pulse Rate [orthos tatic lying Right Pulse Oximeter] Pulse Rate [orthos tatic sitting Righ t Pulse Oximeter] Pulse Rate [orthos tatic standing Rig ht Pulse Oximeter] Respiratory Rate 22 16 16 Blood Pressure 167/69 H 167/69 H Blood Pressure [Le ft Forearm] Blood Pressure [Ri ght Radial Artery] Blood Pressure [or thostatic lying Le ft Radial Artery] Blood Pressure [or thostatic sitting Left Radial Artery ] Blood Pressure [or thostatic standing Left Radial Arter y] Pulse Oximetry 99 99 Oxygen Delivery Me thod Room Air 07/02/22 20:35 07/02/22 21:20 07/02/22 23:00 Temperature 97.8 F 97.5 F L 97.8 F Pulse Rate 82 71 Pulse Rate [Right Pulse Oximeter] Pulse Rate [Right Radial] Pulse Rate [orthos tatic lying Right Pulse Oximeter] Pulse Rate [orthos tatic sitting Righ t Pulse Oximeter] Pulse Rate [orthos tatic standing Rig ht Pulse Oximeter] Respiratory Rate 16 18 16 Blood Pressure 134/63 153/75 H 156/63 H Blood Pressure [Le ft Forearm] Blood Pressure [Ri ght Radial Artery] Blood Pressure [or thostatic lying Le ft Radial Artery] Blood Pressure [or thostatic sitting Left Radial Artery ] Blood Pressure [or thostatic standing Left Radial Arter y] Pulse Oximetry 95 94 Oxygen Delivery Me thod 07/02/22 23:30 07/02/22 19:30 07/02/22 19:30 Temperature 98.2 F 97.9 F Pulse Rate 71 Pulse Rate [Right Pulse Oximeter] Pulse Rate [Right Radial] 83 Pulse Rate [orthos tatic lying Right Pulse Oximeter] Pulse Rate [orthos tatic sitting Righ t Pulse Oximeter] Pulse Rate [orthos tatic standing Rig ht Pulse Oximeter] Respiratory Rate 20 16 Blood Pressure 156/65 H Blood Pressure [Le ft Forearm] Blood Pressure [Ri ght Radial Artery] 167/69 H Blood Pressure [or thostatic lying Le ft Radial Artery] Blood Pressure [or thostatic sitting Left Radial Artery ] Blood Pressure [or thostatic standing Left Radial Arter y] Pulse Oximetry 93 95 95 Oxygen Delivery Me thod Room Air Room Air 07/02/22 23:00 07/02/22 23:00 07/03/22 01:36 Temperature 98.2 F Pulse Rate 67 Pulse Rate [Right Pulse Oximeter] Pulse Rate [Right Radial] 71 71 Pulse Rate [orthos tatic lying Right Pulse Oximeter] Pulse Rate [orthos tatic sitting Righ t Pulse Oximeter] Pulse Rate [orthos tatic standing Rig ht Pulse Oximeter] Respiratory Rate 20 20 Blood Pressure Blood Pressure [Le ft Forearm] Blood Pressure [Ri ght Radial Artery] 156/65 H Blood Pressure [or thostatic lying Le ft Radial Artery] Blood Pressure [or thostatic sitting Left Radial Artery ] Blood Pressure [or thostatic standing Left Radial Arter y] Pulse Oximetry 93 Oxygen Delivery Me thod Room Air 07/03/22 02:01 07/03/22 05:55 07/03/22 07:00 Temperature 97.7 F Pulse Rate Pulse Rate [Right Pulse Oximeter] Pulse Rate [Right Radial] 70 85 Pulse Rate [orthos tatic lying Right Pulse Oximeter] 76 Pulse Rate [orthos tatic sitting Righ t Pulse Oximeter] 73 Pulse Rate [orthos tatic standing Rig ht Pulse Oximeter] 81 Respiratory Rate 20 Blood Pressure Blood Pressure [Le ft Forearm] Blood Pressure [Ri ght Radial Artery] 156/71 H Blood Pressure [or thostatic lying Le ft Radial Artery] 176/55 H Blood Pressure [or thostatic sitting Left Radial Artery ] 181/84 H Blood Pressure [or thostatic standing Left Radial Arter y] 169/73 H Pulse Oximetry 96 Oxygen Delivery Me thod Room Air 07/03/22 07:00 07/03/22 11:00 Temperature 98.2 F 98.1 F Pulse Rate Pulse Rate [Right Pulse Oximeter] Pulse Rate [Right Radial] 85 76 Pulse Rate [orthos tatic lying Right Pulse Oximeter] Pulse Rate [orthos tatic sitting Righ t Pulse Oximeter] Pulse Rate [orthos tatic standing Rig ht Pulse Oximeter] Respiratory Rate 20 20 Blood Pressure Blood Pressure [Le ft Forearm] Blood Pressure [Ri ght Radial Artery] 147/65 H 134/61 Blood Pressure [or thostatic lying Le ft Radial Artery] Blood Pressure [or thostatic sitting Left Radial Artery ] Blood Pressure [or thostatic standing Left Radial Arter y] Pulse Oximetry 97 96 Oxygen Delivery Me thod Room Air Room Air Labs Labs: Laboratory Results - last 24 hr 07/02/22 07/02/22 07/02/22 12:30 12:30 12:30 WBC RBC Hgb Hct MCV MCH MCHC Plt Count Absolute Retic 0.15 H Percent Retic 5.0 H Immature Retic Fraction 26.6 H Retic Hgb Equivalent 23.7 L VBG pH VBG pCO2 VBG pO2 VBG HCO3 Sodium Potassium Chloride Carbon Dioxide BUN Creatinine Estimated Creat Clear Estimated GFR Glucose Lactate Calcium Phosphorus Magnesium Iron 54 TIBC 339 % Saturation 16 L Ferritin 95.5 Troponin I C-Reactive Protein Vitamin B12 TSH Blood Type Antibody Screen Crossmatch ([facility]) 07/02/22 07/02/22 07/02/22 14:06 15:37 19:58 WBC RBC Hgb Hct MCV MCH MCHC Plt Count Absolute Retic Percent Retic Immature Retic Fraction Retic Hgb Equivalent VBG pH VBG pCO2 VBG pO2 VBG HCO3 Sodium Potassium Chloride Carbon Dioxide BUN Creatinine Estimated Creat Clear Estimated GFR Glucose Lactate Calcium Phosphorus Magnesium Iron TIBC % Saturation Ferritin Troponin I 0.12 H* 0.08 H* C-Reactive Protein Vitamin B12 TSH Blood Type O Positive Antibody Screen NEGATIVE Crossmatch ([facility]) See Detail 07/03/22 07/03/22 07/03/22 06:24 06:24 06:24 WBC 8.84 RBC 3.28 L Hgb 9.1 L Hct 29.1 L MCV 89 MCH 28 MCHC 31 L Plt Count 176 Absolute Retic Percent Retic Immature Retic Fraction Retic Hgb Equivalent VBG pH 7.446 H VBG pCO2 39 L VBG pO2 71.7 H VBG HCO3 27 Sodium 140 Potassium 3.9 Chloride 102 Carbon Dioxide 25 BUN 31 H Creatinine 1.3 Estimated Creat Clear 26.03 Estimated GFR 42 Glucose 165 H Lactate 0.8 Calcium 9.8 Phosphorus 5.2 H Magnesium 1.7 Iron TIBC % Saturation Ferritin Troponin I 0.04 C-Reactive Protein 0.6 Vitamin B12 494 TSH Blood Type Antibody Screen Crossmatch ([facility]) 07/03/22 06:24 WBC RBC Hgb Hct MCV MCH MCHC Plt Count Absolute Retic Percent Retic Immature Retic Fraction Retic Hgb Equivalent VBG pH VBG pCO2 VBG pO2 VBG HCO3 Sodium Potassium Chloride Carbon Dioxide BUN Creatinine Estimated Creat Clear Estimated GFR Glucose Lactate Calcium Phosphorus Magnesium Iron TIBC % Saturation Ferritin Troponin I C-Reactive Protein Vitamin B12 TSH 2.930 Blood Type Antibody Screen Crossmatch ([facility])
--- NOTE | 2022-07-03 20:21 | PC.NURSE ---
Pt up independently in room with use of personal cane. Denies pain. States to securities underwriter that this is the best I've felt in a month. After ECHO, Dr. Huynh discussed results and need to stay the night and follow up with Cardiology sooner that her scheduled appointment in Aug. Pt was very sad and teary. Employment Case Manager supported pt in her needs and answered her questions. Pt asked for something to help me calm down. See MAR for HS med per Dr. Huynh.
[2022-07-03] MEDS: ATORVASTATIN CALCIUM 40 MG TABLET 80 MG PO (20:56)
[2022-07-03] MEDS: LORazepam 0.5 MG TABLET PO (20:56)
--- NOTE | 2022-07-03 23:33 | PC.NURSE ---
End of Shift ([id number]): Patient pleasant and cooperative. Afebrile. Denies pain. Up independently in room.
[2022-07-04 03:00] VITALS: BP 136/57; PULSE 68; RESP 18; TEMP 36.7; O2SAT 97
--- NOTE | 2022-07-04 05:46 | PC.NURSE ---
[id number] Shift note: Patient pleasant and cooperative. Afebrile. Denies pain/SOB/N/V. Up independently in room. Slept well overnight.
[2022-07-04] MEDS: SERTRALINE 100 MG TABLET PO (06:28)
[2022-07-04] MEDS: OMEPRAZOLE 20 MG CAPSULE DR 40 MG PO (06:28)
[2022-07-04 07:00] VITALS: BP 139/57; PULSE 81; RESP 18; TEMP 36.8; O2SAT 96
[2022-07-04] MEDS: TORSEMIDE 20 MG TABLET PO (09:11)
[2022-07-04] MEDS: METOPROLOL TARTRATE 25 MG TABLET 12.5 MG PO (09:11)
[2022-07-04] MEDS: AMLODIPINE 5 MG TABLET PO (09:12)
--- NOTE | 2022-07-04 11:55 | PC.NURSE ---
Discharge: Patient pleasant and cooperative. Patient vitally stable, lungs clear, BS WNL, IV removed, catheter intact. Patient denied pain and independent in room. Patient tolerating regular diet, BS was 156 for breakfast, patient urinating well. Patient tele strip not recorded as there was no data on the clinical access since yesterday 07/03 and discharge order had already gone through by the time life underwriter got to tele strip, tele=NSR. Patient signed belongings sheet and discharge form. Patient's questions regarding discharge info were answered. Patient left the floor at 1126 by wheelchair with beloningings and .
--- NOTE | 2022-07-04 14:40 | P.DS_ITS ---
DS: Providers Provider Date Seen: 07/04/22 Date of admission: 07/03/22 13:36 Primary care physician: Smith Marie MD Admitting Clinician: Ahsan Huynh MD Consults: 07/02/22 18:48 Consult to Nutrition [CONS] Routine Comment: Reason for consult:: Miscellaneous Comment: heart failure; DMT2; CAD; HTN obesity; GERD Attending Physician on discharge: Radha Breaux MD [place] [facility] Date of Discharge: 07/04/22 DS: Diagnosis Discharge Diagnosis (1) Valvular cardiomyopathy: Status: Acute Problem details: Worsening aortic stenosis. Mean gradient is no 37 mmHg when previously it was 29. Peak velocity is up m/sec. Cardiology referral for TAVR recommended at discharge (2) Acute on chronic diastolic CHF (congestive heart failure), NYHA class 3: Status: Acute Problem details: Transitioned from oral Lasix to oral Demedex; torsemide 20 mg daily. Basic CHF Education including daily weights salt restriction discussed. (3) Aortic stenosis: Status: Acute Problem details: Coronary angiogram/hemodynamic study 07/26/2021: LMCA, mild luminal irregularities; LAD, mild luminal irregularities; circumflex, patent stent free of significant disease; RCA is dominant, patent stent, mild luminal irregularities. Moderate aortic stenosis, mean gradient 26 mmHg, SHE 1.08 cm2. Now mean gradient is 37 and 0.88 cm squared (4) Chronic anemia: Status: Acute Problem details: Iron studies suggest iron deficiency. No additional studies performed as of 07/02/2022. Outpatient workup. (5) DM (diabetes mellitus), type 2: Status: Acute Problem details: Insulin requiring, plus glipizide, metformin, and pioglitazone Will hold pioglitazone from here forward DS: Summary Hospital Course Hospital Course: HOSPITALIST DISCHARGE SUMMARY ATTENDING PHYSICIAN: Radha Breaux MD FINAL DIAGNOSIS: Severe aortic stenosis Valvular cardiomyopathy Acute on chronic systolic congestive heart failure with preserved EF. Chronic anemia Type 2 diabetes HOSPITAL FOLLOWUP ISSUES: 1. Aortic stenosis. Referral to Cardiology at discharge was strongly encouraged. Next available pressroom foreman at the [facility] here in [place] was requested. 2. Diuresis and euvolemia assessment. Patient was in [id number] fluid overload. Did well with 3 doses of IV furosemide. Discharged on oral torsemide. Education and daily weights given. 3. Amlodipine added for hypertension 4. Chronic anemia - outpatient workup with Hematology recommended especially if patient will be undergoing TAVR. REFERRALS WHILE ADMITTED: None REFERRALS AFTER DISCHARGE: Cardiology, Hematology BRIEF HOSPITAL COURSE: Pat presented with signs and symptoms consistent with acute systolic heart failure with preserved EF. This acute episode is likely related to her worsening aortic stenosis. She also did not follow through on changing her oral diuretic as her outpatient physician had instructed. She was experiencing orthopnea, dyspnea on exertion and paroxysmal nocturnal dyspnea. She felt much improved with IV diuresis. Follow-up echo shows worsening aortic stenosis. Education was pursued. Outpatient cardiology for TAVR recommended. She was also noted to be anemic. She was transfused 1 unit of packed red blood cells. This anemia is chronic in nature. Hematology outpatient workup recommended. VITAL SIGN, MEDICATION, LAB/MICRO, IMAGING SUMMARY (full details available in account tabs or by records request) DISCHARGE MEDICATIONS: See Reconciled list REVIEW OF SYSTEMS No new chest pain or dyspnea Pain controlled No voiding difficulties Tolerating diet challenge PHYSICAL EXAM: CONSTITUTIONAL: Insightful. Rested. Much less dyspneic and arrival. VITAL SIGNS: see record. HEENT: Normocephalic, atraumatic. PERRL, EOMI, conjunctivae pink, no scleral icterus. Ears and nose externally normal. Pharynx normal. NECK: No JVD. No carotid bruit, no thyromegaly, no adenopathy. CHEST: Clear to auscultation bilaterally. HEART: S1 and S2 normal. Edema 1+ ABDOMEN: Soft, nontender. Normal bowel sounds. MUSCULOSKELETAL: No gross joint deformity or swelling. NEURO: Cranial nerves intact. Grossly intact. No asymmetric findings. SKIN: No rashes, petechiae, concerning changes PSYCHIATRIC: Mood euthymic. DISPOSITION: Home with family Time spent on discharge 37 minutes. Status at Discharge Functional status at discharge: uses cane/walker Overall status at discharge: patient is progressing back to baseline Time Spent with Patient Time attestation: Total time spent providing and/or coordinating discharge services: Time spent: Greater than 30 minutes Exam Const: Vital Signs, click to edit/add: Vital Signs - 24 hr 07/03/22 15:00 07/03/22 15:00 07/03/22 15:00 Temperature 98.2 F Pulse Rate 73 Pulse Rate [Right Radial] 73 73 Respiratory Rate 20 Blood Pressure [Ri ght Radial Artery] 146/66 H Pulse Oximetry 95 Oxygen Delivery Me thod Room Air 07/03/22 19:00 07/03/22 23:00 07/03/22 23:00 Temperature 98.0 F 98.0 F Pulse Rate Pulse Rate [Right Radial] 84 79 79 Respiratory Rate 18 18 18 Blood Pressure [Ri ght Radial Artery] 125/90 H 159/68 H Pulse Oximetry 94 94 Oxygen Delivery Me thod Room Air Room Air 07/04/22 03:00 07/03/22 23:00 07/04/22 07:00 Temperature 98.0 F Pulse Rate 65 Pulse Rate [Right Radial] 68 81 Respiratory Rate 18 18 Blood Pressure [Ri ght Radial Artery] 136/57 L Pulse Oximetry 97 Oxygen Delivery Me thod Room Air 07/04/22 07:00 Temperature 98.3 F Pulse Rate Pulse Rate [Right Radial] 81 Respiratory Rate 18 Blood Pressure [Ri ght Radial Artery] 139/57 L Pulse Oximetry 96 Oxygen Delivery Me thod Room Air Discharge Plan Discharge Disposition: Home, Self-Care Date of Admission: 07/03/22 13:36 Attending Provider on Discharge: Radha Breaux Primary Care Provider: Smith Marie Condition: Improved Anticipated Discharge Date/Time: 07/04/22 09:22 Discharge Medications: New torsemide 20 mg Tablet 20 mg PO DAILY Qty: 30 0RF amlodipine 5 mg Tablet 5 mg PO DAILY Qty: 30 0RF Continued hydrocodone-acetaminophen 5-325 mg tablet 1 tab PO Q8H PRN (Reason: pain) Qty: 90 0RF omeprazole 40 mg capsule,delayed release(DR/EC) 40 mg PO DAILY glimepiride 4 mg tablet 8 mg PO DAILY atorvastatin 80 mg tablet 80 mg PO QPM insulin glargine [Lantus Solostar U-100 Insulin] 100 unit/mL (3 mL) insulin pen 14 unit subcut QPM metformin 1,000 mg tablet 1,000 mg PO BIDWMEAL metoprolol tartrate 25 mg tablet 12.5 mg PO BID sertraline 100 mg tablet 100 mg PO DAILY Discontinued furosemide 20 mg tablet 40 mg PO DAILY pioglitazone 15 mg tablet 15 mg PO DAILY No Action (DME) pen needle, diabetic [Unifine Pentips] 31 gauge x 5/16 needle See Rx Instructions .Route Rx Instructions: TID Discharge Orders: Discharge Order (Routine); Ordered 07/04/22 Ordered By: Radha Breaux Patient Education: Amlodipine (By mouth), Torsemide (By mouth), Transcatheter Aortic Valve Replacement (GEN) Additional Instructions: 1. Torsemide 20mg replaces your Lasix medication. no further lasix. 2. Please stop your pioglitazone for diabetes 3. We added 5 mg of amlodipine for your blood pressure. 4. Each morning - weigh yourself; take your blood pressure and blood sugar. 5. Next steps: discuss an aortic valve replacement with cardiology and discuss with Dr. Marie how your blood pressure, blood sugars and shortness of breath is going. 6. I would like Dr. Marie to set you up with a hematology evaluation for chronic anemia and inquire about iron infusions for you. This would be necessary prior to valve surgery. Activity Level: Activity as Tolerated Discharge Diet: Diabetic Follow Up Appointments: [facility] [Provider Group] - 08/07/22 3:30 pm (Follow up with the [facility] with earliest [place] [address] ) Smith Marie MD [Primary Care Provider] - 07/07/22 11:30 am (Follow up with PCP Regarding CHF hospitlization) Forms: [employer] Info Instructions
[2022-07-05 07:22] LABS: Folate, Serum 21.1 ng/mL (>=5.9)
== END 2022-07-04 11:26 | disposition home or self-care (01) ==
LOC: ED 12:46 → MEDSURG 07-03 13:49
PROVIDERS: Family Medicine; Admitting Provider Internal Medicine; Emergency Provider Family Medicine; PCP Family Medicine; Visit Provider Internal Medicine
DX: I50.33 Acute on chronic diastolic (congestive) heart failure (principal); I35.0 Nonrheumatic aortic (valve) stenosis; I25.10 Atherosclerotic heart disease of native coronary artery without angina pectoris; I11.0 Hypertensive heart disease with heart failure; I42.8 Other cardiomyopathies; J90 Pleural effusion, not elsewhere classified; E11.649 Type 2 diabetes mellitus with hypoglycemia without coma; R06.01 Orthopnea; R06.00 Dyspnea, unspecified; R06.09 Other forms of dyspnea; D64.9 Anemia, unspecified; Z79.84 Long term (current) use of oral hypoglycemic drugs; Z79.4 Long term (current) use of insulin; E78.5 Hyperlipidemia, unspecified; Z96.641 Presence of right artificial hip joint; R77.8 Other specified abnormalities of plasma proteins; R60.0 Localized edema; R60.9 Edema, unspecified
CPT/HCPCS: 36415; 36430; 71260; 80048; 80076; 82607; 82728; 82746; 82803; 82947; 82962; 83540; 83550; 83605; 83735; 83880; 84100; 84443; 84484; 85025; 85027; 85045; 85610; 86140; 86850; 86900; 86901; 86922; 87635; 93005; 93306; 94761; 96372; 96374; 96376; 99284; 99285; G0378; A9270; J1940; P9016; Q9967

== ENCOUNTER 2022-07-07 12:12 | Outpatient (CLI) | payer OTHER, SELFPAY ==
--- OUTSIDE RECORDS SUMMARY | 2022-07-07 12:35 | XMS_ITS | Clinical Summary ---
:1945 Author Organization [facility] [place] [address] Care Team Providers Name Role Phone Smith Marie MD Primary Care Provider Allergies Active Allergy Reactions Severity Noted Date Comments Losartan Cough 10/08/2016 Medications Medication Sig Dispensed Refills Start End Date Status Date omeprazole (PRILOSEC) 40 TAKE 1 CAPSULE 90 capsule 1 Active mg Delayed-Release EVERY DAY 8 capsuleIndications: Gastroesophageal reflux disease, esophagitis presence not specified atorvastatin (LIPITOR) Take 1 tablet by 90 tablet 0 Active 80 mg tabletIndications: mouth once daily. 8 Coronary artery disease Please make due to lipid rich plaque appointment for follow up glimepiride (AMARYL) 4 TAKE 2 TABLETS BY 180 tablet 0 12/17/19 1 Active mg tabletIndications: MOUTH ONCE DAILY 8 Uncontrolled type 2 WITH A MEAL diabetes mellitus without complication, without long-term current use of insulin citalopram (CeleXA) 40 Take 40 mg by 0 Active mg tablet mouth once daily. hydroCHLOROthiazide Take 1 Tablet (25 0 Active (HCTZ) 25 mg mg) by mouth once 1 tabletIndications: daily. Hypertension pioglitazone (ACTOS) 15 Take 15 mg by 0 Active mg tablet mouth once daily. metFORMIN (GLUCOPHAGE) Take 1,000 mg by 0 Active 500 mg tablet mouth 2 times daily with meals. acetaminophen (TYLENOL Take 2 Tablets 100 Tablet 0 Active EXTRA STRGTH) 500 mg (1,000 mg) by 1 tabletIndications: S/P mouth every 6 lumbar spinal fusion hours. Max acetaminophen dose: 4000mg in 24 hrs. methocarbamoL (ROBAXIN) Take 1 Tablet (750 30 Tablet 0 02 Active 750 mg mg) by mouth every 1 tabletIndications: S/P 6 hours if needed. lumbar spinal fusion Accu-Chek Tianna Plus 0 Active test strp strip 1 furosemide (LASIX) 20 mg 20 mg. 0 Active tablet 1 HYDROcodone-acetaminophe 0 Active n (NORCO) 5-325 mg per 1 tablet predniSONE (DELTASONE) TAKE 1 TABLET (20 0 Active 20 mg tablet MG) BY MOUTH DAILY 1 metoprolol tartrate Take 1 Tablet (50 60 Tablet 0 Active (LOPRESSOR) 50 mg mg) by mouth 2 1 tabletIndications: times daily. Hypertension amLODIPine (NORVASC) 10 Take 1 Tablet (10 30 Tablet 1 07/26/20 2 Active mg tabletIndications: mg) by mouth once 1 Hypertension daily. Active Problems Problem Noted Date Postoperative wound dehiscence 03/09/2021 Insulin dependent type 2 diabetes mellitus 03/09/2021 Iron deficiency anemia 03/09/2021 Gastroesophageal reflux disease without esophagitis Lumbar spinal stenosis 02/22/2021 History of MRSA infection 02/22/2021 Nonrheumatic aortic valve stenosis 02/22/2021 Obesity 02/22/2021 Aortic stenosis 03/18/2019 Overview: - moderate MRSA cellulitis 02/29/2016 CAD (coronary artery disease) 05/09/2010 Overview: 04/2010: Abnormal stress test: ACOSTA to mCx and pRCA. Plavix min 1 year prefer 2 years or longer if tolerating Dyslipidemia 05/01/2010 History of gastroesophageal reflux (GERD) 05/01/2010 Abnormal cardiovascular stress test 05/01/2010 Overview: - 02/22/19 NM stress test: small area of m ild to moderate ischemic in the mid and apical anterior wall Hypertension 05/01/2010 Depression 05/01/2010 Anxiety state, unspecified 03/12/2007 Unspecified asthma(493.90) 03/12/2007 health maintenance 03/12/2007 Overview: colonoscopy 05-repeat 10 yrs mammo 08/26 Postoperative back pain S/P lumbar spinal fusion Morbid obesity, unspecified obesity type Resolved Problems Problem Noted Date Resolved Date Uncontrolled type 2 diabetes mellitus with hyperglycemia 02/202103/09/2021 SOB (shortness of breath) 03/18/2019 03/09/2021 Type II or unspecified type diabetes mellitus without 201303/09/2021 mention of complication, uncontrolled Dyspnea 05/01/2010 03/09/2021 Chest pain 05/01/2010 03/09/2021 Other and unspecified hyperlipidemia 03/12/200707/2010 Esophageal reflux 03/12/2007 05/01/2010 Overview: Gastroesophageal Reflux Acute postoperative pain 03/09/2021 Encounters Date Type Specialty Care Team Description 07/03/2022 Orders Only <No scans attac hed> from Last 3 Months Immunizations Name Administration Dates Next Due AMB Influenza, IIV3 (Age >=3 08/05/2010, 07/12/2008 years)(Flu Clinic Only) Influenza A (H1N1), Inactivated (Age 1007/04/2011, 08/02/2009 >=3 Years) Influenza, High-dose Inactivated 07/07/2019, 07/13/2018, 08/2017, 06/30/2016, 07/10/2015, 06/28/2014 Influenza, High-dose Quadrivalent 07/17/2020 Inactivated Influenza, IIV3 (Age 6-35 mos) 07/04/2011 Influenza, IIV3 (Age >=3 years) 06/15/2012, 08/02/2009, 01/2007, 07/15/2006, 07/09/2005, 07/08/2004, 07/07/2003 Pneumococcal Poly,23-Valent 05/02/2010 (Pneumovax) Pneumococcal conj 13-Valent (Prevnar 01/18/2015 13) Td (Age >=7 Years) 08/01/2005 Td, Preservative Free (age >= 7 08/01/2005 Years) Tdap 08/18/2017 Family History Medical History Relation Name Comments Anesthesia Problem No Family History Social History Tobacco Use Types Packs/Day Years Used Date Never Smoker Smokeless Tobacco: Never Used Tobacco Cessation: Counseling Given: Yes Alcohol Use Standard Drinks/Week Comments Not Currently 0 (1 standard drink = 0.6 oz pure alcoho l) Sex Assigned at Date Recorded Not on file Obstetrics History Para Term AB IAB SAB Ectopic Multiple Living Live Births 6 5 5 Date Outcome GA Total Labor/2nd/3rd Weight Sex Delivery Anes PTL Radha A 1 A5 Name Clin Labor Term Term Term Term Term Last Filed Vital Signs Vital Sign Reading Time Taken Comments Blood Pressure 150/60 07/26/2021 5:50 PM CDT Pulse 102 07/26/2021 5:50 PM CDT Temperature 36.2 ??C (97.2 ??F) 07/26/2021 5:50 PM CDT Respiratory Rate 20 07/26/2021 5:50 PM CDT Oxygen Saturation 100% 07/26/2021 5:50 PM CDT Inhaled Oxygen Concentration - - Weight 94.7 kg (208 lb 12.8 oz) 07/26/2021 9:21 AM CDT Height 157.5 cm (5' 2) 07/26/2021 9:21 AM CDT Body Mass Index 38.19 07/26/2021 9:21 AM CDT Plan of Treatment Upcoming Encounters Date Type Specialty Care Team Description 08/07/2022 Office Visit Juan F Siegel MD [address] [phone] (Wo rk) Health Maintenance Due Date Last Done Comments Hepatitis C screening for 1963 age 18-79 Zoster (shingles) series 1994 for age 50+ (1 of 2) Medicare Wellness for age 0110/12/2009 65+ BMI (ht and wt on same 04/07/2018 04/07/2017, 12/25/2016, day) for age 18+ 10/08/2016, Additional history exists Depression screening for 04/07/2018 04/07/2017, 01/25/2016, age 12+ 01/25/2016 COVID-19 vaccine series (4 10/05/2021 08/10/2021, , - Booster for Pfizer 12/04/2020 series) Influenza for age 65+ 05/22/2022 07/17/2020, 07/07/2019, 07/13/2018, Additional history exists Tetanus booster 08/18/2027 08/18/2017, 08/01/2005, 08/01/2005 DEXA/DXA scan for age 65+ Addressed 06/02/2011 (Declined) Overridden with the intention of not completing the t opic Pneumococcal series for Completed 01/18/2015, 05/02/2010 age 65+ Tdap Completed 08/18/2017 Medical Devices Implanted Type Area Public Policy Analyst Device Shelf Model / Identifier Expiration Date Ser ial / Lot Vital Polyaxial Screw [id number] N/A: Spine [id number] / Implanted: Qty: 4 on 02/22/2021 by Terry Stevens MD at [facility] / Description: VITAL POLYAXIAL SCREW 6.5MM [id number] Procedures Procedure Name Priority Date/Time Associated Diagnosis Comme nts ECHO COMPLETE WO Routine 07/03/2022 4:46 PM Acute CHF (H C) Results for this CONTRAST CDT (aortic steno sis) procedure are in [place] the results section. from Last 3 Months Results ECHO COMPLETE WO CONTRAST (07/03/2022 4:46 PM CDT) P athologist Signature AORTIC VALVE 37 mmHg MEAN PG EJECTION 62 % FRACTION LVEDD 4.4 cm Anatomical Region Laterality Modality HEART Ultrasound Specimen (Source) Anatomical Collection Method Collection Time Re ceived Time Location / / Volume Laterality 07/03/2022 4:04 PM CDT Narrative 07/03/2022 4:53 PM CDT ECHOCARDIOGRAM MAURICE PATRICIA ? Accessi on#: ?? [id number] : ?1945 76 years Study Date: ?? 07/03/2022 4:04:27 PM Gender: F ?BP: ? 134/61 mmHg Height: 152.00 cm ?BSA: ?1.96 m? ?? Weight: 102.00 kg ?Tech: ? MJS ? Referring MD: RYAN HUYNH Site: ? [facility] Reading Location: MOBILE OP Procedure: 2D, Spectral Doppler and [place] r Doppler. Indication for study: CHF/ / ANEMIA Cardiac Rhythm: Normal sinus.Study quali ty: Good. Final Impressions: 1. Normal left ventricular size, mildly increased wall thickness, normal global systolic function, calculated EF of 62 %. 2. Right ventricular cavity size is nor mal, global systolic RV function is normal. 3. Mildly enlarged left atrium. 4. The aortic valve is calcified, sever e stenosis and trivial regurgitation. The aortic valve peak velocity is 3.9 m/s, the peak gradient is 60 mmHg, and the mean gradient is 37 mmHg. The aortic valve area is 0.88 cm? ?? with a dimensionless index of 0.24. The stroke volume index is 43.2 ml/m? ??. 5. The mitral valve is mild mitral phyllis lar calcification (posterior), mild mitral regurgitation. 6. Tricuspid valve is normal. 7. No pericardial effusion. Chamber Sizes and Function Normal left ventricular size, mildly inc reased wall thickness, normal global systolic function, calculated EF of 62 %. Left atrial size is mildly enlarged. Right ventricular cavity size is normal, globa l systolic RV function is normal. The ri ght atrium is normal. Right atrial volume index is 22 ml/m? ??. Right atrial area is 15 cm? ??. The pulmonary artery is of normal size and origin. The sinus of Va lsalva is normal sized. The ascending ao rta is normal sized. Valves, RV Pressures and Diastolic Funct ion The aortic valve is calcified, severe st enosis and trivial regurgitation. The mitral valve is mild mitral annular calcification (posterior), mild mitral regurgitation. Diastolic function assessment not performed. The tricuspid valve is normal in structure. Tricuspid regurgitation is regurgitation is not evident. The pulmonic valve is normal. No pulmonary regurgitation. TTE images do not appear adequat e for transcather intervention with camron ent supine. Masses, Effusion, Shunts There is no pericardial effusion. The in ferior vena cava is normal sized, respiratory size variation greater than 50%. No left to right shunting was detected by limited color flow Doppler interrogation of the interatrial septum. MEASUREMENTS AND CALCULATIONS 2-D Measurements and LV Function: LVID (d) 4.4 cm Planimetered EF 62 % LVID (s) 3.0 cm LV FS% (2D) ? 32 % IVS (d) ??1.3 cm LVOT diameter ?? 2.2 cm LVPW (d) 1.4 cm HR ?7 8 bpm Ao Sinus 2.9 cm LA Vol index ?29 ml/ m2 Asc Ao ?? 3.4 cm RA Vol index ?22 ml /m2 LA ? 4.2 cm RA area ? 1 5 cm?RV Max 4C (d) ?? 3.2 cm Diastology: Mitral ?Tissue Doppler E Peak 1.4 m/s ??e', Septum ? 0.07 m /s A Peak 1.1 m/s ??e', Lateral ?0.09 m /s E/A ?1.3 ?E/e' Average ?? 17. 11 DT ? 216 msec IVRT ?? 50 msec Aortic Valve: Vmax ? 3.9 m/s ??SHE (V) ?? 1.11 cm? ?? VTI ?0.96 m ?? SHE (I) ?? 0.88 cm? ?? LVOT V max 1.2 m/s ??Max PG ?60 mmHg LVOT VTI ?? 0.23 m ?? Mean PG ?? 37 mmHg SV ? 85 ml ?Dim Index 0.24 SV index ?? 43 ml/m? ?? CO ?6.6 l/min ?CI ?3.4 l/min/m? ?? Mitral Valve: MVA ?3.5 cm? ?? MV P 1/2 63 msec Tricuspid Valve and estimated PA pressur es: TAPSE 2.7 cm . This study was interpreted by [facility]. CC: [facility], Med/ Surg - IP [facility]. ??Final ?? Procedure Note Yesi Bangura, [facility] - 07/03/2022Formatt ing of this note might be different from the original. ECHOCARDIOGRAM MAURICE PATRICIA : 1945 76 years Study Date: 06/21 4:04:27 PM Gender: F BP: 134/61 mmHg Height: 152.00 cm BSA: 1.96 m? ?? Weight: 102.00 kg Tech: [facility] [place] Referring MD: RYAN HUYNH Site: [facility] Reading Location: MOBILE OP Procedure: 2D, Spectral Doppler and [place] r Doppler. Indication for study: CHF/ / ANEMIA Cardiac Rhythm: Normal sinus.Study quali ty: Good. Final Impressions: 1. Normal left ventricular size, mildly increased wall thickness, normal global systolic function, calculated EF of 62 %. 2. Right ventricular cavity size is nor mal, global systolic RV function is normal. 3. Mildly enlarged left atrium. 4. The aortic valve is calcified, sever e stenosis and trivial regurgitation. The aortic valve peak velocity is 3.9 m/s, the peak gradient is 60 mmHg, and the mean gradient is 37 mmHg. The aortic valve area is 0.88 cm? ?? with a dimensionless index of 0.24. The stroke volume index is 43.2 ml/m? ??. 5. The mitral valve is mild mitral phyllis lar calcification (posterior), mild mitral regurgitation. 6. Tricuspid valve is normal. 7. No pericardial effusion. Chamber Sizes and Function Normal left ventricular size, mildly inc reased wall thickness, normal global systolic function, calculated EF of 62 %. Left atrial size is mildly enlarged. Right ventricular cavity size is normal, global systolic RV function is normal. The right atrium is normal. Right atrial volume index is 22 ml/m? ??. Right atrial area is 15 cm? ??. The pulmonary artery is of normal size and origin. The sinus of Valsalva is normal sized. The ascending aorta is normal sized. Valves, RV Pressures and Diastolic Funct ion The aortic valve is calcified, severe st enosis and trivial regurgitation. The mitral valve is mild mitral annular calcification (posterior), mild mitral regurgitation. Diastolic function assessment not performed. The tricuspid valve is normal in structure. Tricuspid regurgitation is regurgitation is not evident. The pulmonic valve is normal. No pulmonary regurgitation. TTE images do not appear adequate for transcather intervention with patient supine. Masses, Effusion, Shunts There is no pericardial effusion. The in ferior vena cava is normal sized, respiratory size variation greater than 50%. No left to right shunting was detected by limited color flow Doppler interrogation of the interatrial septum. MEASUREMENTS AND CALCULATIONS 2-D Measurements and LV Function: LVID (d) 4.4 cm Planimetered EF 62 % LVID (s) 3.0 cm LV FS% (2D) 32 % IVS (d) 1.3 cm LVOT diameter 2.2 cm LVPW (d) 1.4 cm HR 78 bpm Ao Sinus 2.9 cm LA Vol index 29 ml/m2 Asc Ao 3.4 cm RA Vol index 22 ml/m2 LA 4.2 cm RA area 15 cm? ?? RV Max 4C (d) 3.2 cm Diastology: Mitral Tissue Doppler E Peak 1.4 m/s e', Septum 0.07 m/s A Peak 1.1 m/s e', Lateral 0.09 m/s E/A 1.3 E/e' Average 17.11 DT 216 msec IVRT 50 msec Aortic Valve: Vmax 3.9 m/s SHE (V) 1.11 cm? ?? VTI 0.96 m SHE (I) 0.88 cm? ?? LVOT V max 1.2 m/s Max PG 60 mmHg LVOT VTI 0.23 m Mean PG 37 mmHg SV 85 ml Dim Index 0.24 SV index 43 ml/m? ?? CO 6.6 l/min CI 3.4 l/min/m? ?? Mitral Valve: MVA 3.5 cm? ?? MV P 1/2 63 msec Tricuspid Valve and estimated PA pressur es: TAPSE 2.7 cm . This study was interpreted by an [facility]. CC: [facility], Med/ Surg - IP [facility]. Final Ryan Huynh MD ECHO ORD from Last 3 Months Insurance Payer Benefit Plan / Subscriber ID Effective Dates Phone Addre ss Type Group MEDICARE PART A MEDICARE PART A [id number] 2019-Present ATTN: CLAIMS - HB USE ONLY HB ONLY [address] [place] [address] [employer]ICE [id number] 2020-Present [address] [address] [place] [address] Advance Directives Latest Code Status on File Code Status Date Activated Date Inactivated Comments Full Code 07/26/2021 10:19 AM 07/26/2021 8:56 PM Code Status Discussion: Reviewed Preferences Full Code 03/09/2021 6:55 PM 03/15/2021 3:21 PM Code Status Discussion: Discussed Full Code 02/22/2021 1:32 PM 02/26/2021 2:19 PM Code Status Discussion: Not Discussed Full Code 03/18/2019 8:59 AM 03/18/2019 3:50 PM Full Code 02/04/2012 10:30 AM 02/04/2012 9:44 PM Care Teams [employer] Driver Relationship Specialty Start Date End Date Smith Marie MD PCP - General Family Practice 03/11/19 [address] [facility] [place] [address]
[2022-07-07 17:23] LABS: Chloride* 98 mmol/L (96-114); Potassium* 4.3 mmol/L (3.6-5.1); Sodium* 140 mmol/L (135-149)
[2022-07-07 17:26] LABS: Blood Urea Nitrogen* 47 mg/dL (7-30); Calcium* 10.7 mg/dL (8.4-10.6); Carbon Dioxide* 25 mmol/L (20-32); Creatinine* 1.4 mg/dL (0.5-1.5); Estimated Glomerular Filt Rate 39 ml/min; Glucose* 97 mg/dL (60-115)
--- NOTE | 2022-08-27 13:33 | ONC.NURNOTE ---
Addendum entered by Lashawn Patel RN 09/09/22 09:53: Talked with Verna at the clinic, she notes that there was no note to provider. She will be sure that provider is notified of below and they will call with any questions. Original Note: Received referal from primary care for unspecified anemia. Discussed patient with Dr. Saez and following recommendations were made: 1. Patient on metformin, can lead to B12 deficiency 2. Notes mention Iron Deficiecy Anemia 3. Also a possibility of Anemai aof Chronic Inflammation 4. Questioning occult blood - need scopes - EGD and colonoscopy After the above are looked into will see.
== END 2022-07-07 12:13 | disposition home or self-care (01) ==
LOC: LONREF 12:13
PROVIDERS: PCP Family Medicine; Visit Provider Family Medicine
DX: I10 Essential (primary) hypertension (principal); I50.33 Acute on chronic diastolic (congestive) heart failure
CPT/HCPCS: 80048